=== PATIENT | female | born 2000 | race Asian ===

== ENCOUNTER 2020-11-14 12:36 | Inpatient (IN) | payer BC, SELFPAY ==
[2020-11-14] VITALS (15 sets, daily range): BP systolic 95–120; BP diastolic 65–92; PULSE 66–79; RESP 18; TEMP 36.3; O2SAT 99–100
--- NOTE | ~2020-11-14 | CT_ITS ---
EXAMINATION: CT pelvis wo con DATE: 11/14/2020 23:11 INDICATION: Abnormal CT with suspicion for acute appendicitis. TECHNIQUE: High resolution computed tomography (CT) of the pelvis was performed without intravenous c ontrast following administration of oral contrast. Additional sagittal and coronal reconstructions we re performed. Automated exposure control and iterative reconstruction technique were employed. The do se-length product was 123.25 mGy-cm. COMPARISON: CT dated 10/14/2020 at 7:56 PM FINDINGS: There is a gas and fluid-filled loop of bowel which on the coronal images measures approximately 13 m m in diameter near the expected location of the tip of the appendix which loops cephalad in a U-shape d configuration with what appears to be a blind-ending kidney measuring 10 mm diameter along side the more proximal cecum inferior to the ileocecal valve which could represent the appendix. No oral cont rast material has reached the bowels in the lower abdomen or pelvis which limits evaluation. 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 No abscess or free intraperitoneal gas. Tiny fat-containing umbilical hernia. Excreted contrast materia l within the distal ureters and in the bladder. Uterus and left adnexa are unremarkable. Again seen i s a 1.6 cm fat and soft tissue density nodule at the right adnexa most likely an ovarian dermoid. Bon es are unremarkable. IMPRESSION: 1. 10-13 mm diameter U-shaped segment of bowel near the tip of the cecum suspicious for not definitiv e for a dilated appendix. Evaluation remains limited by the paucity of surrounding fat in the absence of expected for oral contrast material. 2. 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 Reviewed, dictated and finalized at location A. IMPRESSION: 1. 10-13 mm diameter U-shaped segment of bowel near the tip of the cecum suspic ious for not definitive for a dilated appendix. Evaluation remains limited by t he paucity of surrounding fat in the absence of expected for oral contrast mate rial. 2. 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
--- NOTE | ~2020-11-14 | CT_ITS ---
EXAMINATION: CT abdomen pelvis w con DATE: 11/14/2020 20:15 INDICATION: Abdominal pain and vomiting TECHNIQUE: Computed tomography (CT) of the abdomen and pelvis was performed with 100 mL Omnipaque-350 intravenous contrast. Automated exposure control and iterative reconstruction technique were employe d. The dose-length product was 163.90 mGy-cm. COMPARISON: None FINDINGS: Lung bases are clear. Visualized inferior heart is normal. No pericardial or pleural effusion. Focal hepatic steatosis along the ligamentum teres. Gallbladder, pancreas, spleen, bilateral adrenal glands and kidneys are normal. Bladder and retroflexed uterus are normal. 1.7 cm mixed macroscopic fat and soft tissue density nodule at the right adnexa consistent with a small ovarian dermoid. Left adnexa i s unremarkable no bowel obstruction or abnormal bowel wall thickening. The appendix is not definitive ly identified. There does appear to be some edema within the mesenteric fat in the right hemipelvis m edial to the cecum and could not exclude acute appendicitis. This region there is a small region of f luid density with a few tiny foci of internal gas, unclear whether this is within or outside of the s mall bowel. No pathologically enlarged abdominal or pelvic lymphadenopathy. Bones are unremarkable. IMPRESSION: 1. Appendix is not identified. There appears to be mild stranding in the fat of the right lower quadr ant which raises some suspicion for but is not diagnostic of acute appendicitis. Could consider repea t imaging of the pelvis couple hours following administration of oral contrast to better delineate th e lumen of the bowels. Dr. Freed discussed these findings with Dr. Garcia at 8:35 PM. 2. 1.7 cm macroscopic fat-containing right adnexal lesion consistent with an ovarian dermoid. Reviewed, dictated and finalized at location A. IMPRESSION: 1. Appendix is not identified. There appears to be mild stranding in the fat of the right lower quadrant which raises some suspicion for but is not diagnostic of acute appendicitis. Could consider repeat imaging of the pelvis couple hour s following administration of oral contrast to better delineate the lumen of th e bowels. Dr. Freed discussed these findings with Dr. Garcia at 8:35 PM. 2. 1.7 cm macroscopic fat-containing right adnexal lesion consistent with an ov jimy dermoid.
--- NOTE | ~2020-11-14 | XR_ITS ---
EXAMINATION: XR abdomen/kub 1V DATE: 11/14/2020 23:54 INDICATION: Abdominal pain. Assess for oral contrast material. TECHNIQUE: A supine view of the abdomen was obtained. COMPARISON: None. FINDINGS: Excreted contrast from recent contrast enhanced CT at the bilateral kidneys and more prominently at t he right renal collecting system and bladder. No definitive oral contrast material identified in the abdomen or pelvis. No dilated loops of bowel to suggest obstruction. IMPRESSION: 1. No evident oral contrast material. Reviewed, dictated and finalized at location A.
[2020-11-14 13:28] LABS: Basophils Percent Auto 0.3 % (0.2-1.2); Hematocrit 44.5 % (37.0-47.0); Hemoglobin 14.6 g/dL (12.0-15.0); Immature Granulocyte Absolute 0.03 K/mm3 (0.00-0.031); Immature Granulocyte Percent A 0.3 % (0-0.5); Lymphocytes Absolute Auto 0.84 K/mm3 (0.9-3.2); Lymphocytes Percent Auto 7.4 % (18.3-44.2); Mean Corpuscular HGB Conc 32.8 g/dl (32-36); Mean Corpuscular Hemoglobin 30.4 pg (26-34); Mean Corpuscular Volume 92.5 fl (80-100); Mean Platelet Volume 9.1 fl (7.4-10.4); Monocytes Absolute Auto 0.3 K/mm3 (0.1-0.6); Monocytes Percent Auto 2.3 % (2.6-8.5); Neutrophils Absolute Auto 10.2 K/mm3 (1.3-6.7); Neutrophils Percent Auto 89.7 % (45.5-73.1); Platelet Count Result 371 k/mm3 (150-375); Red Blood Count 4.81 M/mm3 (4.2-5.4); Red Cell Distribution Width 11.8 % (11.5-14.5); White Blood Count 11.3 K/mm3 (4.5-10.0)
[2020-11-14 13:40] LABS: Alanine Aminotransferase 17 U/L (4-35); Albumin Level 5.1 g/dL (3.5-5.1); Alkaline Phosphatase 70 U/L (38-126); Anion Gap 12 mmol/L (8-16); Aspartate Amino Transferase 26 U/L (14-36); Bilirubin,Total 0.7 mg/dL (0.2-1.3); Blood Urea Nitrogen 9 mg/dL (7-17); Calcium 9.6 mg/dL (8.4-10.2); Carbon Dioxide 26 mmol/L (22-30); Chloride 102 mmol/L (98-107); Estimated CRCL calculation 99 ml/min; Estimated Glomerular Filt Rate > 60; Glucose 122 mg/dL (65-110); Lipase 32 U/L (23-300); Potassium 4.5 mmol/L (3.4-5.0); Sodium 140 mmol/L (137-145)
[2020-11-14 13:47] LABS: Add Urine Microscopic? YES; Appearance Urine Cloudy (Clear); Bacteria Urine Trace /hpf; Bilirubin Urine Negative (Negative); Blood Urine 1+ (Negative); Budding Yeast Urine Present /hpf; Color Urine Yellow (Yellow); Glucose Urine UA Negative (Negative); Ketones Urine 2+ mg/dL (Negative); Leukocyte Esterase Ur Trace LEU/UL (Negative); Mucus Urine Moderate /lpf; Nitrate Urine Negative (Negative); Protein Urine 2+ mg/dL (Negative); RBC Urine 21-50 /hpf (0-2); Specific Grav Ur 1.029 (1.001-1.035); Squamous Epithelial Cell Urine Few /hpf (Few); Urobilinogen Urine Negative mg/dL (<2.0); WBC Clumps Urine Present /HPF; WBC Urine 16-20 /hpf
--- NOTE | 2020-11-14 16:55 | ED.GENADULT ---
HPI - General Adult General Chief complaint: Abdominal Pain <Sunita Garcia MD - Last Filed: 11/20/20 07:19> Stated complaint: ABD PAIN <Sunita Garcia MD - Last Filed: 11/20/20 07:19> Time Seen by Provider: 11/14/20 16:42 <Sunita Garcia MD - Last Filed: 11/20/20 07:19> Source: patient <Sunita Garcia MD - Last Filed: 11/20/20 07:19> History of Present Illness HPI narrative: Patient is a 20 y/o female complaining of generalized abdominal pain starting yesterday. She describes her pain as sharp and cramping. She rates her pain as 7/10. There is no known alleviating or exacerbating factor. She has some vomiting, but no diarrhea. She has no dysuria. <Sunita Garcia MD - Last Filed: 11/20/20 07:19> Related Data Allergies/adverse reactions: Allergies Allergy/AdvReac Type Severity Reaction Status Date / Time No Known Allergies Allergy Verified 11/16/20 09:02 <Sunita Garcia MD - Last Filed: 11/20/20 07:19> Review of Systems Constitutional: Constitutional: Denies chills, Denies fever(s), Denies headache(s) and Denies weakness <Sunita Garcia MD - Last Filed: 11/20/20 07:19> Eyes: Eyes: Denies blurry vision <Sunita Garcia MD - Last Filed: 11/20/20 07:19> ENT: Denies headache(s) and Denies neck pain <Sunita Garcia MD - Last Filed: 11/20/20 07:19> Cardiovascular: Cardiovascular: Denies chest pain and Denies dyspnea <Sunita Garcia MD - Last Filed: 11/20/20 07:19> Respiratory: Respiratory: Denies cough and Denies dyspnea <Sunita Garcia MD - Last Filed: 11/20/20 07:19> Gastrointestinal: Gastrointestinal: Reports abdominal pain, Denies diarrhea, Reports nausea and Reports vomiting <Sunita Garcia MD - Last Filed: 11/20/20 07:19> Genitourinary: Genitourinary: Denies hematuria and Denies dysuria <Sunita Garcia MD - Last Filed: 11/20/20 07:19> Musculoskeletal: Musculoskeletal: Denies back pain and Denies neck pain <Sunita Garcia MD - Last Filed: 11/20/20 07:19> Neurologic: Denies headache(s) and Denies weakness <Sunita Garcia MD - Last Filed: 11/20/20 07:19> PMFSH Past Medical History Medical History: Medical History (Updated 11/16/20 @ 11:46 by Fatimah Walker [facility]) No significant past medical history <Sunita Garcia MD - Last Filed: 11/20/20 07:19> Surgical History Surgical History: Surgical History (Updated 11/16/20 @ 09:02 by Corazon Adan) No significant past surgical history <Sunita Garcia MD - Last Filed: 11/20/20 07:19> Family History Family History: Family History (System 11/16/20 @ 09:02 by Corazon Adan) Other Adopted <Sunita Garcia MD - Last Filed: 11/20/20 07:19> Social History Social History: Social History (System 11/16/20 @ 09:02 by Corazon Adan) Smoking status: Never smoker Alcohol intake: never Substance use: never Substance use type: does not use Living arrangements: with family Occupation/Education: student 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 Gender identity (if verbalized by the patient): Female Spiritual care concerns: No <Sunita Garcia MD - Last Filed: 11/20/20 07:19> Exam Const: General: no acute distress and well developed <Sunita Garcia MD - Last Filed: 11/20/20 07:19> Orientation/consciousness: oriented to person, oriented to place, oriented to time and patient oriented x3 <Sunita Garcia MD - Last Filed: 11/20/20 07:19> HENMT: Head: normocephalic <Sunita Garcia MD - Last Filed: 11/20/20 07:19> Ears: external ears normal <Sunita Garcia MD - Last Filed: 11/20/20 07:19> General nose exam: Normal external nose present <Sunita Garcia MD - Last Filed: 11/20/20 07:19> Eyes: General: appearance normal, both eyes and all related structures <Sunita Garcia MD - Last Filed: 11/20/20 07:19> Conjunctivae: conjunctivae normal <Sunita Garcia MD - Last Filed: 11/20/20 07:19> Neck: Neck: normal visual inspection and full RO
[2020-11-14] MEDS: METOCLOPRAMIDE HCL INJ 10 MG/2 ML VIAL IV PUSH (17:30)
[2020-11-14] MEDS: SODIUM CHLORIDE 0.9% IV 1,000 ML 999 ML IV CONT (17:31)
[2020-11-14] MEDS: KETOROLAC 15 MG/ML VIAL (*BKC) IV PUSH (17:47)
[2020-11-14 21:09] LABS: Amphetamine Screen Urine Negative (Negative); Barbiturate Screen Urine Negative (Negative); Benzodiazepines Screen Urine Negative (Negative); Cannabinoid Screen Urine Negative (Negative); Cocaine Screen Urine Negative (Negative); Methadone Screen Urine Negative (Negative); Opiate Screen Urine Negative (Negative); Phencyclidine Screen Urine Negative (Negative)
[2020-11-14] MEDS: MORPHINE SULFATE (*CRX) 2 MG/ML INJ IV PUSH (21:43)
[2020-11-15] VITALS (22 sets, daily range): BP systolic 90–114; BP diastolic 54–77; PULSE 69–102; RESP 12–24; TEMP 36.2–38.3; O2SAT 97–100; BMI 16.8
[2020-11-15] MEDS: MORPHINE SULFATE (*CRX) 2 MG/ML INJ IV PUSH (00:08)
--- NOTE | 2020-11-15 02:54 | ADMGEN ---
This patient, Zahra Block, was admitted to Medical Room 244-. Patient/family oriented to hospital policies and general routines including ID bracelet, bed and alarms, visiting hours, pain management, procedures, bathroom and other care routines, personal items, smoking policy, room service/diet, and visiting hours. Information on how to activate the Rapid Response Team has been discussed. Patient/Family are encouraged to report perceived risks to care and to ask questions if they do not understand what they are told or what they should do.
[2020-11-15] MEDS: LACTATED RINGERS 1,000 ML 125 ML IV CONT (03:09)
[2020-11-15] MEDS: MORPHINE SULFATE (*CRX) 4 MG/ML INJ 2 MG IV PUSH (07:32)
--- NOTE | 2020-11-15 09:36 | PM.IMHP ---
H&P: HPI History of Present Illness Date/Time: 11/15/20 09:36 Chief Complaint: Abdominal pain and vomiting Narrative: This is a 20-year-old female who presented to the ER with complaints of abdominal pain and vomiting. She reports a sudden onset of generalized abdominal pain 2 days ago, in the evening. She tried to go to bed, but the pain worsened through the night and she developed nausea with vomiting. She reports multiple episodes of vomiting overnight. Yesterday, she had 3 more episodes of vomiting, and her abdominal pain continued to worsen. Therefore, she presented to the ER for further evaluation. She had vomiting again in the ER. CT scan of the abdomen and pelvis showed mild stranding in the fat of the right lower quadrant raising suspicion for acute appendicitis, but the appendix is not identified. Incidentally noted was a 1.7 cm macroscopic fat-containing right adnexal lesion consistent with an ovarian dermoid measuring 1.7 cm. Since the appendix was not identified, she was scheduled to drink oral contrast and have a repeat CT scan of the pelvis to try to better evaluate the appendix. With the repeat CT of the pelvis, there was no oral contrast material that had reached the bowels in the lower abdomen or pelvis, which limits evaluation. There was a 10-13 mm diameter U-shaped segment of bowel near the tip of the cecum suspicious for a dilated appendix. Evaluation remains limited by the paucity of surrounding fat in the absence of expected oral contrast. Labs showed a white blood cell count of 11,300, but otherwise were unremarkable. Urinalysis was abnormal with trace leukocytes, 2+ protein, 1+ blood, 2+ ketones, WBC 16-20, and RBC 21-50. Our service was consulted by the ED physician for surgical evaluation of possible acute appendicitis. She has been admitted to our service in this setting. The patient is now seen today on the medical floor. She reports that overnight and into this morning, her abdominal pain has now localized to the RLQ and is mostly only lower abdominal pain. No nausea. She had a temperature of 100.1 F early this morning. No previous abdominal surgeries. She denies ever having this pain before. She denies any urinary symptoms, vaginal itching, or vaginal discharge. She reports that she should start her menses this week. Urine in the ER was negative. Review of Systems Review of Systems: All systems reviewed & are unremarkable except as noted in HPI and below Constitutional: Constitutional: Reports as per HPI, Denies fatigue and Reports fever(s) ENT: Reports Normal hearing present Cardiovascular: Cardiovascular: Reports no additional cardiovascular complaints, Denies chest pain and Denies leg edema Respiratory: Respiratory: Reports no additional respiratory complaints, Denies cough and Denies dyspnea Gastrointestinal: Gastrointestinal: Reports as per HPI, Reports no additional gastrointestinal complaints, Reports abdominal pain, Denies melena, Reports bloating, Denies hematochezia, Denies constipation, Denies diarrhea, Reports nausea, Reports vomiting and Denies hematemesis Genitourinary: Genitourinary: Denies hematuria, Denies nocturia, Denies dysuria, Denies urinary urgency, Denies vaginal discharge, Denies vaginal odor, Denies vaginal pruritus and Reports other (last period was about 3 weeks ago) Neurologic: Reports system reviewed and no additional complaints, except as documented, Denies focal weakness, Denies numbness and Denies tingling PMFSH Past Medical History Medical History No significant past medical history Surgical History Surgical History No significant past surgical history Family History Family History Other Adopted Social History Social History Smoking status: Never smoker
[2020-11-15 09:42] LABS: Basophils Percent Auto 0.2 % (0.2-1.2); Eosinophils Percent Auto 0.1 % (0-4.4); Hematocrit 37.2 % (37.0-47.0); Hemoglobin 12.3 g/dL (12.0-15.0); Immature Granulocyte Absolute 0.03 K/mm3 (0.00-0.031); Immature Granulocyte Percent A 0.3 % (0-0.5); Lymphocytes Absolute Auto 0.59 K/mm3 (0.9-3.2); Lymphocytes Percent Auto 6.6 % (18.3-44.2); Mean Corpuscular HGB Conc 33.1 g/dl (32-36); Mean Corpuscular Hemoglobin 30.4 pg (26-34); Mean Corpuscular Volume 92.1 fl (80-100); Mean Platelet Volume 9.1 fl (7.4-10.4); Monocytes Absolute Auto 0.4 K/mm3 (0.1-0.6); Monocytes Percent Auto 4.5 % (2.6-8.5); Neutrophils Absolute Auto 7.9 K/mm3 (1.3-6.7); Neutrophils Percent Auto 88.3 % (45.5-73.1); Platelet Count Result 294 k/mm3 (150-375); Red Blood Count 4.04 M/mm3 (4.2-5.4); Red Cell Distribution Width 11.9 % (11.5-14.5)
--- NOTE | 2020-11-15 10:30 | PC.NURSE ---
To OR per russell, IV saline locked. Report given to JOHAN Rod.
[2020-11-15] MEDS: fentaNYL CITRATE INJ (*CRX) 100 MCG/2 ML VIAL 25 MCG IV PUSH (11:00)
[2020-11-15] MEDS: LACTATED RINGERS 1,000 ML 30 ML IV CONT ×2 (11:00→13:18)
--- NOTE | 2020-11-15 11:04 | SUR.PREOP ---
called dr butts about pain to abdomen 09/02,orders received.fentanyl given with pulse oximeter applied
--- NOTE | 2020-11-15 11:06 | WPDANESEPPF ---
Anes - Initial Pre Proc Eval Procedure: Operation Date: 11/15/20 12:00 Proposed Procedures p Laparoscopic Appendectomy - Srinivasa Jiang MD Date/Time: 11/15/20 11:06 Surgeon: Srinivasa Jiang MD Pre Op Diagnosis: Acute appendicitis Patient Data Age: 20 Gender: F Height: 1.57 m Weight: 41.8 kg Last Vital Signs Temp 101 F H 11/15/20 11:02 Pulse 93 11/15/20 11:02 Resp 16 11/15/20 11:02 BP 114/64 11/15/20 11:02 Pulse Ox 98 11/15/20 11:02 Allergies Allergy/AdvReac Type Severity Reaction Status Date / Time No Known Allergies Allergy Verified 11/14/20 17:32 Home Medications Medication Instructions Recorded Confirmed Type No Home Medications 11/15/20 11/15/20 History Laboratory Tests 11/14/20 11/14/20 11/14/20 13:19 13:19 13:22 WBC 11.3 K/mm3 H K/mm3 (4.5-10.0) RBC 4.81 M/mm3 M/mm3 (4.2-5.4) Hgb 14.6 g/dL g/dL (12.0-15.0) Hct 44.5 % % (37.0-47.0) MCV 92.5 fl fl (80-100) MCH 30.4 pg pg (26-34) MCHC 32.8 g/dl g/dl (32-36) RDW 11.8 % % (11.5-14.5) Plt Count 371 k/mm3 k/mm3 (150-375) MPV 9.1 fl fl (7.4-10.4) Immature Gran % (Auto) 0.3 % % (0-0.5) Neut % (Auto) 89.7 % H % (45.5-73.1) Lymph % (Auto) 7.4 % L % (18.3-44.2) [place] % (Auto) 2.3 % L % (2.6-8.5) Eos % (Auto) 0.0 % % (0-4.4) Baso % (Auto) 0.3 % % (0.2-1.2) Lymph # (Auto) 0.84 K/mm3 L K/mm3 (0.9-3.2) [place] # (Auto) 0.3 K/mm3 K/mm3 (0.1-0.6) Eos # (Auto) 0.0 K/mm3 K/mm3 (0-0.3) Baso # (Auto) 0.0 K/mm3 K/mm3 (0.0-0.1) Abs Immat Gran (auto) 0.03 K/mm3 K/mm3 (0.00-0.031) Absolute Neuts (auto) 10.2 K/mm3 H K/mm3 (1.3-6.7) Absolute Nucleated RBC 0.0 K/mm3 K/mm3 (0.0-0.012) Nucleated RBC % 0.0 % % (0.0-0.2) Sodium 140 mmol/L mmol/L (137-145) Potassium 4.5 mmol/L mmol/L (3.4-5.0) Chloride 102 mmol/L mmol/L (98-107) Carbon Dioxide 26 mmol/L mmol/L (22-30) Anion Gap 12 mmol/L mmol/L (8-16) BUN 9 mg/dL mg/dL (7-17) Creatinine 0.50 mg/dL L mg/dL (0.7-1.0) Estim Creat Clear Calc 99 ml/min ml/min Estimated GFR > 60 (59 - ) Glucose 122 mg/dL H mg/dL (65-110) Calcium 9.6 mg/dL mg/dL (8.4-10.2) Total Bilirubin 0.7 mg/dL mg/dL (0.2-1.3) AST 26 U/L U/L (14-36) ALT 17 U/L U/L (4-35) Alkaline Phosphatase 70 U/L U/L (38-126) Total Protein 9.0 g/dL H g/dL (6.3-8.2) Albumin 5.1 g/dL g/dL (3.5-5.1) Lipase 32 U/L U/L (23-300) Urine Color Yellow (Yellow) Urine Appearance Cloudy H (Clear) Urine pH 7.0 (5.0-9.0) Ur Specific [place] 1.029 (1.001-1.035) Urine Protein 2+ mg/dL H mg/dL (Negative) Urine Glucose (UA) Negative mg/dL mg/dL (Negative) Urine Ketones 2+ mg/dL H mg/dL (Negative) Ur Blood (Man) 1+ H (Negative) Urine Nitrate Negative (Negative) Urine Bilirubin Negative (Negative) Urine Urobilinogen Negative mg/dL mg/dL (<2.0) Leukocyte Esterase Rfl Trace LALY/UL H LALY/UL (Negative) Urine RBC 21-50 /hpf H /hpf (0-2) Urine WBC 16-20 /hpf H /hpf Urine WBC Clumps Present /HPF H /HPF (None) Ur Squamous Epith Cells Few /hpf /hpf (Few) Urine Bacteria Trace /hpf /hpf Urine Mucus Moderate /lpf H /lpf Urine Yeast (Budding) Present /hpf H /hpf (None) Urine Opiates Screen Urine Methadone Screen Ur Barbiturates Screen Ur Phencyclidine Scrn Ur Amphetamine Screen U Benzodiazepines Scrn
--- NOTE | 2020-11-15 11:34 | WPDHPUPDATE1 ---
History and Physical Update Update Date/Time: 11/15/20 11:34 History and Physical has been reviewed, including an updated exam of the patient. There are NO changes in the patient's condition. Risks, benefits, and alternatives have been discussed and questions answered. Patient agrees to proceed with procedure.
[2020-11-15] MEDS: BUPIVACAINE/EPINEPHRINE 0.25% 50 ML VIAL INFILTRATE (12:36)
--- NOTE | 2020-11-15 13:34 | W.PM.PROC2 ---
Procedure Note - Detailed Date of Procedure 11/15/20 Pre-op Diagnosis Acute uncomplicated appendicitis Post-op Diagnosis other (Acute appendicitis with perforation and peritonitis) Procedure Performed laparoscopic appendectomy Surgeon Srinivasa Jiang MD Dictating Machine Mechanic Rosemarie PRADO. OR Diet Aid Anesthesia general Indications Patient developed abdominal pain in the evening 2 days ago. She came to the emergency room yesterday with complaints of mid abdominal pain and had slightly elevated white count and equivocal CT scan. We tried to repeat the CT scan with oral contrast but none of it really made it to the distal ileum when we repeated the pelvic portion of the CT. However, this still suggested possibility of appendicitis. Patient was observed overnight and because of slightly elevated temperature, continued right lower quadrant abdominal pain which was unrelenting after thorough discussion she wished to proceed with surgical intervention. I believe this was the correct and right decision. Findings Patient had a very distended, red, inflamed appendix with some gangrene at its base. During manipulation of this at the time of surgery there was small amount of stool leakage so certainly patient may have already had a somewhat walled-off perforation of the base of her appendix. There was some yellowish cloudy purulent fluid in the pelvis suggestive of at least serous peritonitis Description of Procedure The patient was seen in her Hospital Room. The risks, benefits, complications, treatment options, and expected outcomes were discussed with the patient and/or family. The possibilities of reaction to medication, pulmonary aspiration, perforation of viscus, bleeding, recurrent infection, finding a normal appendix, the need for additional procedures, failure to diagnose a condition, and creating a complication requiring transfusion or operation were discussed. There was concurrence with the proposed plan and informed consent was obtained. The site of surgery was properly noted/marked. The patient was taken to Operating Room, and a time out was preformed which identified this as the proper patient, and the procedure verified as laparoscopic appendectomy, possible open. The patient was placed in the supine position and general anesthesia was induced, along with placement of orogastric tube, SCD hose, and a Bell catheter. The abdomen was prepped and draped in a sterile fashion. A 5 mm umbilical incision was made and the peritoneal cavity was accessed using the Veress needle technique. Once the abdomen was insufflated to 14 mmHg pressure a 5 mm XL trocar over the 0? 5 mm scope was carefully twisted into the abdomen via the umbilicus. The pneumoperitoneum was then established to steady pressure of 14 mm Hg. A 12 mm laparoscopic port was placed through a transverse suprapubic incision. An additional 5 mm cannula was then placed in the left lower quadrant of the abdomen at a level half way between the umbilicus and pubic symphysis under direct vision. A careful evaluation of the entire abdomen was carried out. The patient was placed in Trendelenburg and left lateral decubitus position. The small intestines were retracted in the cephalad and left lateral direction away from the pelvis and right lower quadrant. The patient was found to have an enlarged and inflamed appendix that was extending [into the right side of the pelvis. As we further dissected the appendix and peeled the omentum off of it there appeared to be slight leakage from the base of the appendix. The appendix was carefully dissected. Once it was free a 45 mm ethicon endogastroentestinal stapler with a vascular load was placed across the mesoappendix. This was fired and hemostasis was checked along the staple line and appeared to be adequate. For this patient, this divided the entire mesoappendix and we were able to proceed immediately to stapling off the appendix at it's junction with the cecum. The
--- NOTE | 2020-11-15 14:37 | PC.NURSE ---
Returned from OR per stretcher. Report received from JOHAN Ferrell.
[2020-11-15] MEDS: LACTATED RINGERS 1,000 ML 100 ML IV CONT (15:33)
[2020-11-15] MEDS: SENNA/DOCUSATE SODIUM TABLET 2 TAB PO (20:38)
[2020-11-15] MEDS: HYDROcodone/acetaminophen (*CRX) 7.5-325 MG TABLET 1 TAB PO (20:39)
[2020-11-16 00:14] VITALS: BP 89/43; PULSE 65; RESP 18; TEMP 37; O2SAT 99
[2020-11-16] MEDS: LACTATED RINGERS 1,000 ML 100 ML IV CONT (01:17)
[2020-11-16 04:12] LABS: Basophils Percent Auto 0.5 % (0.2-1.2); Eosinophils Absolute Auto 0.1 K/mm3 (0-0.3); Eosinophils Percent Auto 0.7 % (0-4.4); Hematocrit 31.5 % (37.0-47.0); Hemoglobin 10.3 g/dL (12.0-15.0); Immature Granulocyte Absolute 0.01 K/mm3 (0.00-0.031); Immature Granulocyte Percent A 0.1 % (0-0.5); Lymphocytes Absolute Auto 0.66 K/mm3 (0.9-3.2); Mean Corpuscular HGB Conc 32.7 g/dl (32-36); Mean Corpuscular Hemoglobin 29.9 pg (26-34); Mean Corpuscular Volume 91.6 fl (80-100); Mean Platelet Volume 9.2 fl (7.4-10.4); Monocytes Absolute Auto 0.4 K/mm3 (0.1-0.6); Monocytes Percent Auto 5.5 % (2.6-8.5); Neutrophils Absolute Auto 6.1 K/mm3 (1.3-6.7); Neutrophils Percent Auto 84.2 % (45.5-73.1); Platelet Count Result 204 k/mm3 (150-375); Red Blood Count 3.44 M/mm3 (4.2-5.4); Red Cell Distribution Width 11.9 % (11.5-14.5); White Blood Count 7.3 K/mm3 (4.5-10.0)
[2020-11-16 04:14] VITALS: BP 95/47; PULSE 70; RESP 18; TEMP 36.6; O2SAT 100
[2020-11-16 04:29] LABS: Anion Gap 6 mmol/L (8-16); Blood Urea Nitrogen 7 mg/dL (7-17); Calcium 8.4 mg/dL (8.4-10.2); Carbon Dioxide 28 mmol/L (22-30); Chloride 102 mmol/L (98-107); Estimated CRCL calculation 98 ml/min; Estimated Glomerular Filt Rate > 60; Glucose 120 mg/dL (65-110); Potassium 3.7 mmol/L (3.4-5.0); Sodium 136 mmol/L (137-145)
--- NOTE | 2020-11-16 07:22 | P.PNAN_ITS ---
Anes - Prog Note Post-Op Date/Time: 11/16/20 07:22 Cardiovascular status: normal Respiratory status: normal Airway patency: baseline Mental status: baseline Post-Op hydration status: normal Vital Signs: Last Vital Signs Temp 97.8 F 11/16/20 04:14 Pulse 70 11/16/20 04:14 Resp 18 11/16/20 04:14 BP 95/47 L 11/16/20 04:14 Pulse Ox 100 11/16/20 04:14 Pain Score (VAS): 10 I/O: Intake & Output 11/15/20 11/15/20 11/16/20 15:59 23:59 07:59 Intake Total 6549 014 4738 Output Total 150 Balance 7211 456 8071 Laboratory Tests 11/16/20 04:01 11/16/20 04:01 11/15/20 11/16/20 11/16/20 09:17 04:01 04:01 WBC 9.0 7.3 RBC 4.04 L 3.44 L Hgb 12.3 10.3 L Hct 37.2 31.5 L MCV 92.1 91.6 MCH 30.4 29.9 MCHC 33.1 32.7 RDW 11.9 11.9 Plt Count 294 204 MPV 9.1 9.2 Immature Gran % (Auto) 0.3 0.1 Neut % (Auto) 88.3 H 84.2 H Lymph % (Auto) 6.6 L 9.0 L [place] % (Auto) 4.5 5.5 Eos % (Auto) 0.1 0.7 Baso % (Auto) 0.2 0.5 Lymph # (Auto) 0.59 L 0.66 L [place] # (Auto) 0.4 0.4 Eos # (Auto) 0.0 0.1 Baso # (Auto) 0.0 0.0 Abs Immat Gran (auto) 0.03 0.01 Absolute Neuts (auto) 7.9 H 6.1 Absolute Nucleated RBC 0.0 0.0 Nucleated RBC % 0.0 0.0 Sodium 136 L Potassium 3.7 Chloride 102 Carbon Dioxide 28 Anion Gap 6 L BUN 7 Creatinine 0.50 L Estim Creat Clear Calc 98 Estimated GFR > 60 Glucose 120 H Calcium 8.4 Microbiology 11/14/20 13:22 Urine Clean Catch Urine Culture - Preliminary Enterococcus species Post-procedural complaints: none Patient Feedback: Patient satisfied with anesthetic care.
[2020-11-16 08:14] VITALS: BP 102/45; PULSE 75; RESP 18; TEMP 36.9; O2SAT 98
--- NOTE | 2020-11-16 11:43 | PM.DS ---
DS: Admitting Diagnosis Discharge Date 11/16/20 Admitting Diagnosis Lower abdominal pain Abnormal CT scan of the abdomen and pelvis Umbilical hernia Dermoid cyst of right ovary DS: Discharge Diagnosis Discharge Diagnosis (1) Acute appendicitis with perforation and generalized peritonitis, without abscess: Code(s): K35.20 - Acute appendicitis with generalized peritonitis, without abscess Status: Resolved Assessment and Plan: 11/15/20 - Laparoscopic appendectomy - Dr. Jiang (2) Umbilical hernia: Code(s): K42.9 - Umbilical hernia without obstruction or gangrene Status: Chronic Assessment and Plan: Tiny fat-containing umbilical hernia on CT scan. Barely appreciated on exam. No specific defect noted during surgery with the periumbilical trochar incision at this site. No further management needed. 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 Recommend routine f/u with OBGYN . DS: Summary Hospital Course Reason for hospitalization: This is a 20-year-old female who presented to the ER with complaints of abdominal pain and vomiting x [address] scan of the abdomen and pelvis in the ER showed mild stranding in the fat of the right lower quadrant raising suspicion for acute appendicitis, but the appendix is not identified. Since the appendix was not identified, she was scheduled to drink oral contrast and have a repeat CT scan of the pelvis to try to better evaluate the appendix. With the repeat CT of the pelvis, there was no oral contrast material that had reached the bowels in the lower abdomen or pelvis, which limits evaluation. There was a 10-13 mm diameter U-shaped segment of bowel near the tip of the cecum suspicious for a dilated appendix. Labs showed mild leukocytosis and she had an abnormal UA. The patient was admitted to the hospital under observation in this setting for surgical evaluation of possible acute appendicitis. Hospital Course: The patient was admitted and started on IV fluids and analgesics, and made NPO. We evaluated the patient and discussed options for treatment of suspected acute appendicitis. She did have a low grade fever after admission. She was taken to the OR for urgent appendectomy on 11/15/20. One dose of IV Cefotetan give pre-operatively. During surgery, she had findings of acute appendicitis with a small opening to the appendix suggesting likely perforated appendicitis. No abscess. WBC normalized. She was kept overnight and started on IV Zosyn post-operatively. Slowly advanced her to a soft diet this morning. Patient is tolerating her diet well and pain is well-controlled. Labs looks good today and she is afebrile. Patient stable for discharge today. Will send a script for a course of oral antibiotics on discharge and f/u with Dr. Jiang as an outpatient in 2 weeks. Time Spent with Patient Time attestation: Total time spent providing and/or coordinating discharge services: Exam Const: General: comfortable, no acute distress, alert and awake Orientation/consciousness: patient oriented x3 Resp: Effort & Inspection: normal respiratory effort Auscultation: clear to auscultation bilaterally Cardio: Rate: regular rate Rhythm: regular rhythm GI: Inspection: non-distended and incision (Abdominal incisions clean and dry, glue intact.) GI Palp: Yes Soft to palpation and Yes Tenderness to palpation present (GI) (incisional) Auscultation: normal bowel sounds Skin: General skin exam: normal color Neuro: General: moves all extremities and no focal motor deficits Extrem: General: no clubbing, cyanosis or edema and no calf tenderness Psych: Mental Status: mental status grossly normal Insight: Good insight present (Psych) Judgement: Good judgement present (Psych) DS: Data Data Completed and Pending Completed studies during hospitalization: ITS Impressions
--- NOTE | 2020-11-16 12:01 | PCDIET ---
Dietitian screen for BMI: 16.9 underweight. Patient post opt appendectomy. Diet order has been advanced to a soft diet. Spoke with patient today, tolerated full liquid diet for breakfast. No weight loss reported. No further nutritional interventions needed.
[2020-11-16 12:14] VITALS: BP 99/55; PULSE 80; RESP 18; TEMP 37; O2SAT 98
== END 2020-11-16 15:54 | disposition home or self-care (01) | DRG 340 ==
LOC: ANHED 23:52 → ANH2MED 11-15 06:16
PROVIDERS: Emergency Medicine; Admitting Provider Surgery; Emergency Provider Emergency Medicine; PCP Pediatrics; Visit Provider Surgery
PROC: 0DTJ4ZZ Resection of Appendix, Percutaneous Endoscopic Approach (ICD-10-PCS; CPT 44970; principal; 2020-11-15 12:00)
DX: K35.32 Acute appendicitis with perforation, localized peritonitis, and gangrene, without abscess (principal); K42.9 Umbilical hernia without obstruction or gangrene; D27.0 Benign neoplasm of right ovary
CPT/HCPCS: 36415; 72192; 74018; 74177; 80048; 80053; 80307; 81001; 81025; 83690; 85025; 87077; 87086; 87088; 87186; 88304; 96361; 96374; 96375; 99285; A9270; J0131; J1100; J1885; J2250; J2270; J2405; J2543; J2704; J2710; J2765; J3010; J7030; J7120; Q9967